=== PATIENT | female | born 1970 | race Caucasian/White ===

== ENCOUNTER → 2016-07-26 | Outpatient (CLI) | payer OTHER | LOC: BMCIMAGING 15:00 | DX: Z12.31 Encounter for screening mammogram for malignant neoplasm of breast (principal) | CPT/HCPCS: G0202 ==

== ENCOUNTER → 2017-07-28 | Outpatient (CLI) | payer OTHER | LOC: BMCIMAGING 14:46 | PROVIDERS: ATTEND Nurse Practitioner Obstetrics & Gynecology | DX: Z12.31 Encounter for screening mammogram for malignant neoplasm of breast (principal) ==

== ENCOUNTER → 2017-08-02 | Outpatient (CLI) | payer OTHER | LOC: BMCIMAGING 09:47 | PROVIDERS: ATTEND Nurse Practitioner Obstetrics & Gynecology | DX: N63.14 Unspecified lump in the right breast, lower inner quadrant (principal); R92.0 Mammographic microcalcification found on diagnostic imaging of breast ==

== ENCOUNTER → 2018-08-03 | Outpatient (CLI) | payer OTHER | LOC: BMCIMAGING 09:13 | PROVIDERS: ATTEND Physician Assistant Medical | DX: Z12.31 Encounter for screening mammogram for malignant neoplasm of breast (principal) ==